=== PATIENT | female | born 1960 | race Caucasian/White ===

== ENCOUNTER 2018-10-31 06:06 | Day surgery (SDC) | payer OTHER ==
[2018-10-21 16:47] VITALS: BMI 42.3
[2018-10-31] MEDS ORDERED: LIDOCAINE HCL 1% PRESERVATIVE FREE - 30ML VIAL ONE (07:09)
[2018-10-31] MEDS ORDERED: BUPIVACAINE HCL/PF 0.5% (5MG/ML) 10 ML VIAL ONE (07:10)
[2018-10-31] MEDS ORDERED: PROPOFOL 20 ML ONE ×2 (07:25)
[2018-10-31] MEDS ORDERED: MIDAZOLAM HCL 2 MG/2 ML SINGLE DOSE VIAL ONE ×2 (07:25)
[2018-10-31] MEDS ORDERED: ACETAMINOPHEN INJECTION 100 ML IVPB ONE (07:31)
[2018-10-31] MEDS ORDERED: KETOROLAC TROMETHAMINE 30 MG/1 ML VIAL ONE (07:40)
[2018-10-31] MEDS ORDERED: ONDANSETRON 4 MG/2 ML VIAL ONE (07:41)
[2018-10-31] MEDS ORDERED: DEXAMETHASONE SOD PHOSPHATE 4 MG/1 ML VIAL ONE (07:41)
[2018-10-31] MEDS ORDERED: ceFAZolin SODIUM 1 GM VIAL ONE (07:42)
[2018-10-31 09:07] VITALS: TEMP 97.9
--- NOTE | 2018-10-31 09:20 | OP ---
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 OPERATIVE PROCEDURE: Arthroplasty of left second toe with a soft tissue metatarsophalangeal joint release. OPERATION IN DETAIL: The patient was taken to the operating room, placed on the operating table in supine position. Usual aseptic prepping and draping was performed. Prior to this, local anesthesia with a 50:50 mix of 1% plain Xylocaine and 0.5% Marcaine was initiated with a total of 10 mL. Attention was directed to the 2nd toe on the left foot where two curvilinear incisions were made over the proximal interphalangeal joint and this was extended down to the metatarsophalangeal joint. The incision was a total of about 7.5 cm. Sharp and blunt dissection was utilized. All vital structures were identified and retracted or released. Attention was first directed to the 2nd metatarsophalangeal joint where a McGlamry elevator was used to free the joint and free all soft tissues. Attention was next directed to the 2nd toe where an extended tendon was cut in a transverse manner. The medial and lateral collateral ligaments were released. The head was delivered into the incision site at the level of the surgical neck and arthroplasty was performed and the head was removed. The areas were all flushed with copious amounts of sterile saline solution. Deep sutures were utilized with number 4-0 Vicryl. Skin was closed with number 4-0 nylon. A dry, sterile dressing was applied to the operative foot. The patient tolerated the operative procedure and anesthesia well. The tourniquet was released and the capillary filling time and all vital structures were noted to be intact at bandaging. ANGEL BULLOCK DPM [id number]
[2018-10-31 11:28] VITALS: BP 140/70; PULSE 814
--- NOTE | 2018-11-05 18:32 | PATH ---
Surgical Pathology Report Patient Name: VIVEK WORLEY [facility]. Rec. #: [id number] /Age/Gender: 1960 (Age: 57) / F Account: [id number] Location: [facility] Taken: 10/31/2018 Received: 10/31/2018 Reported: 11/05/2018 Physicians: Maikol Masonr Specimen(s) Received LEFT SECOND PROXIMAL PHALLANX HEAD AND TENDON Clinical History Hammertoe left toe Final Diagnosis LEFT SECOND PROXIMAL PHALANX HEAD AND TENDON, EXCISION: FRAGMENTS OF BONE AND FIBROCONNECTIVE TISSUE WITH DEGENERATIVE CHANGE. Electronically Signed Katlyn Johnson M.D. Gross Description Received in formalin labeled "left second proximal phalanx head and tendon" are 3 irregular white-rios fragments of bone and soft tissue ranging in size from 0.3 to 1 cm in greatest dimension. The entire specimen is submitted after decalcification in one cassette. MLJOANIE/11/03/2018 joanna/11/03/2018
== END 2018-10-31 11:00 | disposition home or self-care (01) ==
LOC: FASU 06:06
PROVIDERS: ATTEND Podiatrist
PROC: 0SRQ0JZ Replacement of Left Toe Phalangeal Joint with Synthetic Substitute, Open Approach (ICD-10-PCS; principal; 2018-10-31 07:53)
DX: M20.42 Other hammer toe(s) (acquired), left foot (principal)
CPT/HCPCS: 73630-TC-LT; 88304-TC; J0131